=== PATIENT | male | born 1965 | race Caucasian/White ===

== ENCOUNTER 2020-03-12 16:13 | Emergency (ER) | payer SELFPAY ==
[2020-03-12 16:18] VITALS: BP 173/105; PULSE 67; RESP 18; TEMP 36.7; O2SAT 93; BMI 28.8
--- NOTE | 2020-03-12 16:26 | XR_ITS ---
WS: [id number] PORTABLE CHEST HISTORY: sob COMPARISON: 07/18/2011 Hyperinflated lungs. No pneumonia. Subsegmental atelectasis at the RIGHT lung base. No pleural effusion or pneumothorax. Cardiac size: Normal. Mediastinum/Aorta: Normal mediastinum. Healed fracture mid RIGHT clavicle. XR/XR chest 1V portable [id number] IMPRESSION: Chronic emphysema with subsegmental RIGHT basilar atelectasis.
--- NOTE | 2020-03-12 16:27 | W.ED.ABDPA2 ---
HPI - Abdominal Pain General: Chief Complaint: Abdominal Pain Stated Complaint: abd pain Time Seen by Provider: 03/12/20 16:19 Source: patient Mode of arrival: ambulatory Limitations: no limitations History of Present Illness: HPI narrative: 55-year-old male states he had abdominal pain for last 9 days. He states the pain is been roughly 7-8 out of 10 and is sharp in nature. He denies any worsening or improving factors. He has a long history of emphysema and states he had slight wheezing as well. He denies any increase in shortness of breath. Denies any fever or cough. MD elicited complaint: abdominal pain Pertinent past history: none Onset (ago): day(s) Pain Consistency: constant Location: RLQ Severity: moderate Quality: sharp Radiation: none Exacerbating factors: nothing Relieving factors: nothing Associated Symptoms: Denies chills, dysuria and fever(s) Review of Systems Const: Denies: fever, chills, body aches or change in appetite Eyes: Denies: blurry vision or eye discomfort ENMT: Denies: throat pain or dental pain Card: Denies: chest pain Resp: Reports: wheezing GI: Reports: abdominal pain : Denies: painful urination Musc: Denies: neck pain or back pain Skin/Breast: Denies: rash Neuro: Denies: headache Psych: Denies: depression Yusef/Lymph: Denies: easy bruising All/Imm: Denies: hives PFS ED PFSH: Social History (Updated 03/12/20 @ 15:23 by Margo Penny LPN) Smoking and tobacco status: current every day smoker Physical Exam Const: COMMON NORMALS: no apparent distress, oriented x3 and healthy appearing HENMT: COMMON NORMALS: normocephalic and head/scalp atraumatic HEAD & SCALP: normocephalic and atraumatic Eye: COMMON NORMALS: PERRL and EOMs intact bilaterally PUPIL: Yes PERRL Neck/C-Spine: COMMON NORMALS: full ROM and supple Chest: COMMONS NORMALS: inspection of chest normal and palpation of chest normal Resp: COMMON NORMALS: normal respiratory effort, no retractions and no use of accessory muscles AUSCULTATION: wheezes Cardio: COMMON NORMALS: regular rate, regular rhythm and no murmurs RATE: regular rate RHYTHM: regular rhythm GI: COMMON NORMALS: normal to inspection, nondistended, normoactive bowel sounds, soft to palpation and no masses PALPATION: Yes soft and Yes tender Details: RLQ Extremity: COMMON NORMALS: normal to inspection and full ROM Neuro: COMMON NORMALS: oriented x3, moves all extremities and no focal motor deficits Psych: COMMON NORMALS: mental status grossly normal, thought process normal and cooperative THOUGHT PROCESS: normal thought process Skin: COMMON NORMALS: no rashes or lesions noted and no wounds GENERAL SKIN EXAM: no rashes or lesions noted Course Vital Signs: Vital signs: Vital Signs Temperature 98.1 F 03/12/20 16:18 Pulse Rate 63 03/12/20 17:09 Respiratory Rate 16 03/12/20 17:09 Blood Pressure 173/105 03/12/20 16:18 Pulse Oximetry 95 03/12/20 17:09 MDM - Abdominal Pain MDM Narrative: Medical decision making narrative: Patient presents here with abdominal pain patient's lab work and CT scan here are normal. He did have slight wheezing but does have emphysema and is improved with breathing treatment. Patient's x-ray here is normal. Patient is stable for discharge and is well-appearing. Patient's exam here is benign. He is to follow-up with primary care doctor in 3 to 5 days return if worsening Lab Data: Labs: Lab Results 03/12/20 03/12/20 Range/Units 16:30 16:30 WBC 8.1 (4.0-10.0) 10^3/ uL RBC 5.74 H (4.1-5.3) 10^6/u L Hgb 17.4 H (11.7-16.6) g/dL Hct 51.8 (42.0-52.0) % MCV 90.2 (80-94) fL MCH 30.3 (28.0-34.0) pg MCHC 33.6 (30.0-36.0) g/dL RDW 12.3 (12.1-15.1) % Plt Count 260 (130-400) 10^3/c mm MPV 10.3 (7.4-10.4) fL Neut % (Auto) 53.3 % Lymph % (Auto) 30.4 % Mcdonald % (Auto) 11.5 % Eos % (Auto) 3.5 % Baso % (Auto) 0.9 % Neut # (Auto) 4.3 (1.8-7.7) 10^3/u L Lymph # (Auto) 2.5 (0.8-4.8) 10^3/u L Mcdonald # (Auto) 0.9 (0.2-0.9) 10^3/u L Eos # (Auto) 0.3 (0.0-0.8) 10^3/u L Baso # (Auto) 0.1 (0.0-0.1) 10^3/u L Nucleated RBC % (a uto) 0 % Nucleated RBCs # 0.0 /100WBC Sodium 142 (136-145) mmol/L Potassium 4.4 (3.5-5.1) mmol/L Chloride 105 (98-107) mmol/L Carbon Dioxide 25 (22-29) mmol/L Anion Gap 16.4 (5-19) BUN 17 (6-20) mg/dL Creatinine 0.9 (0.7-1.2) mg/dL GFR Calculation 87.3 L (90-130) mL/min Glucose 105 (65-115) mg/dL Calculated Osmolal ity 291 (285-295) mOsm/k g Calcium 10.3 (8.5-10.5) mg/dL Total Bilirubin 0.5 (0.15-1.2) mg/dL AST 25 (0-40) U/L ALT 29 (0-41) U/L Alkaline Phosphata se 76 (40-130) IU/L Total Protein 7.7 (6.6-8.7) g/dL Albumin 4.5 (3.5-5.2) g/dL Globulin 3.2 (1.3-4.6) g/dL Lipase 24 (13-60) U/L Imaging Data ^: CXR: My impression: no acute abnormality CT Head: Radiologist's impression: [address] [address] [address] Scan Report Signed Patient: Dominik De Leon Unit #: [id number] : 1965 Age/Sex: 55 / M ADM Date: 03/12/20 Loc: ER Room/Bed: Attending Dr: Ordering Provider/Ordering MD: Kervin Fisher MD Date of Service: 03/12/20 Procedure(s): CT abdomen pelvis w con* [id number] Accession Number(s): [id number] Report Number: [id number] PROCEDURE INFORMATION: Exam: CT Abdomen And Pelvis With Contrast Exam date and time: 03/12/2020 4:44 PM Age: 55 years old Clinical indication: Abdominal pain; Localized; Right lower quadrant (rlq); Prior surgery; Surgery type: Hernia; Additional info: Abd pain TECHNIQUE: Imaging protocol: Computed tomography of the abdomen and pelvis with intravenous contrast. Radiation optimization: All CT scans at this facility use at least one of these dose optimization techniques: automated exposure control; mA and/or kV adjustment per patient size (includes targeted exams where dose is matched to clinical indication); or iterative reconstruction. Contrast material: OMNI 300; Contrast volume: 95 ml; Contrast route: IV; COMPARISON: CR Pelvis AP 1 or 2 views* [id number] 05/16/2018 12:56 PM RADIATION DOSE METRICS: Total DLP: 987.16 mGy-cm FINDINGS: Lungs: There are calcified granulomas at the lung bases. Liver: There is a diffuse decrease in hepatic parenchymal density, consistent with mild fatty infiltration. There is no focal abnormality within the liver. Gallbladder and bile ducts: The gallbladder is normal. Pancreas: The pancreas is normal. Spleen: The spleen is normal. Adrenals: The adrenal glands are normal. Kidneys and ureters: The kidneys are normal. There is no evidence of renal or ureteral calcifications. There is no evidence of hydronephrosis. Stomach and bowel: There is no evidence of colitis/diverticulitis. Appendix: A normal appendix is identified. Intraperitoneal space: Unremarkable. No free air. No significant fluid collection. Vasculature: The aorta demonstrates mild atherosclerotic calcification. Lymph nodes: Unremarkable. No enlarged lymph nodes. Bladder: Unremarkable as visualized. Reproductive: The prostate and seminal vesicles are normal. Bones/joints: Unremarkable. No acute fracture. Soft tissues: Unremarkable. CT/CT abdomen pelvis w con* [id number] IMPRESSION: Mild fatty liver. No acute findings. Discharge Plan Discharge Patient Disposition: Home, Self-Care Clinical Impression: Abdominal pain Qualifiers: Abdominal location: right lower quadrant Qualified Code(s): R10.31 - Right lower quadrant pain Condition: Stable Prescriptions: New dicyclomine 20 mg tablet 20 mg PO TID Qty: 20 RF: 0 Discharge Orders: Discharge Order (Routine); Ordered 03/12/20 Ordered By: Kervin Fisher Discharge Diet: Advance as tolerated Discharge Activity: Resume usual activity Patient Instructions: Abdominal Pain (ED) Coding Level of Care Code ED Steamfitter Apprentice for Edeg Fwd Exam Comprehensive
[2020-03-12 16:38] LABS: Basophils # 0.1 10^3/uL (0.0-0.1); Basophils % 0.9 %; Eosinophils # 0.3 10^3/uL (0.0-0.8); Eosinophils % 3.5 %; Hematocrit 51.8 % (42.0-52.0); Hemoglobin 17.4 g/dL (11.7-16.6); Lymphocytes # 2.5 10^3/uL (0.8-4.8); Lymphocytes % 30.4 %; Mean Corpuscular HGB Conc 33.6 g/dL (30.0-36.0); Mean Corpuscular Hemoglobin 30.3 pg (28.0-34.0); Mean Corpuscular Volume 90.2 fL (80-94); Mean Platelet Volume 10.3 fL (7.4-10.4); Monocytes # 0.9 10^3/uL (0.2-0.9); Monocytes % 11.5 %; Neutrophils # 4.3 10^3/uL (1.8-7.7); Neutrophils % 53.3 %; Nucleated Red Blood Cells % 0 %; Platelet Count 260 10^3/cmm (130-400); Red Blood Count 5.74 10^6/uL (4.1-5.3); Red Cell Distribution Width 12.3 % (12.1-15.1); White Blood Count 8.1 10^3/uL (4.0-10.0)
[2020-03-12] MEDS: iohexol 300 mg/mL 100 mL Btl IV (16:51)
[2020-03-12 16:53] LABS: Alanine Aminotransferase 29 U/L (0-41); Albumin Level 4.5 g/dL (3.5-5.2); Alkaline Phosphatase 76 IU/L (40-130); Anion Gap 16.4 (5-19); Aspartate Amino Transferase 25 U/L (0-40); Blood Urea Nitrogen 17 mg/dL (6-20); Calcium 10.3 mg/dL (8.5-10.5); Carbon Dioxide 25 mmol/L (22-29); Chloride 105 mmol/L (98-107); Creatinine Clr Calc Pharmacy 97.8875; Globulin 3.2 g/dL (1.3-4.6); Glomerular Filtration Rate 87.3 mL/min (90-130); Glucose 105 mg/dL (65-115); Lipase 24 U/L (13-60); Osmolality Calculated 291 mOsm/kg (285-295); Potassium 4.4 mmol/L (3.5-5.1); Sodium 142 mmol/L (136-145); Total Bilirubin 0.5 mg/dL (0.15-1.2); Total Protein 7.7 g/dL (6.6-8.7)
[2020-03-12 17:02] VITALS: PULSE 61; RESP 16; O2SAT 95
[2020-03-12] MEDS: ipratropium-albuterol 3 mL Neb INHALATION (17:02)
[2020-03-12 17:09] VITALS: PULSE 63; RESP 16; O2SAT 95
[2020-03-12] MEDS: sodium chloride 0.9% 1,000 ML 999 ML IV (17:18)
[2020-03-12 18:08] VITALS: BP 166/112; PULSE 67; RESP 18; TEMP 36.9; O2SAT 94
== END 2020-03-12 18:07 | disposition home or self-care (01) ==
PROVIDERS: Emergency Provider Emergency Medicine; PCP Nurse Practitioner Family
DX: R10.31 Right lower quadrant pain (principal); F17.210 Nicotine dependence, cigarettes, uncomplicated
CPT/HCPCS: 12345; 36415; 71045; 74177; 80053; 83690; 85025; 94640; 96360; 99283; J7030; Q9967

== ENCOUNTER 2020-04-08 13:38 | Emergency (ER) | payer OTHER, SELFPAY ==
[2020-04-08 13:44] VITALS: BP 188/111; PULSE 89; RESP 14; TEMP 36.6; O2SAT 98; BMI 28.3
--- NOTE | 2020-04-08 13:53 | XR_ITS ---
WS: [id number] PORTABLE CHEST HISTORY: trauma COMPARISON: 03/04/2020 Hyperinflated lungs with areas of atelectasis in the lower lung woods with scarring which are new si nce the prior study. No pneumonia. No pleural effusion or pneumothorax. Cardiac size: Normal. Mediastinum/Aorta: Normal mediastinum. No osseous abnormality seen. XR/XR chest 1V portable [id number] IMPRESSION: Chronic emphysema with new areas of atelectasis at the lung bases.
--- NOTE | 2020-04-08 13:54 | W.ED.EXTPRO ---
HPI - Extremity Problem General: Chief complaint: Extremity Injury, Upper Stated complaint: fell about 15 feet/side pain Time Seen by Provider: 04/08/20 13:49 Source: patient Mode of arrival: ambulatory Limitations: no limitations History of Present Illness: HPI Narrative: 55-year-old male states he had a 10 to 15 foot fall off a ladder onto concrete. He landed on his right side and has right-sided abdominal and chest pain. He states the pain is very sharp in nature and rates it a 8 out of 10. Is worse with deep inspirations and with movement. He denies any head or neck injuries. Patient is able ambulate without any problems. Onset (ago): minute(s) Location: right Severity scale (1-10): 8 Exacerbating factors: range of motion Associated symptoms: Reports chest pain; Deny fever(s) or rash Review of Systems Const: Denies: fever(s), chills, body aches or change in appetite Eyes: Denies: blurry vision or eye discomfort ENMT: Denies: throat pain or dental pain Card: Reports: chest pain Resp: Denies: dyspnea GI: Reports: abdominal pain : Denies: dysuria Musc: Denies: neck pain or back pain Skin/Breast: Denies: rash Neuro: Denies: headache(s) Psych: Denies: depression Yusef/Lymph: Denies: easy bruising All/Imm: Denies: urticaria PFSH ED PFSH: Social History Smoking and tobacco status: current every day smoker Alcohol intake: current Physical Exam Const: COMMON NORMALS: no acute distress, patient oriented x3 and healthy appearing HENMT: COMMON NORMALS: normocephalic and atraumatic HEAD & SCALP: normocephalic and atraumatic Eye: COMMON NORMALS: Equal, round and reactive pupils present and EOMs intact bilaterally PUPIL: Yes Equal, round and reactive pupils present Neck/C-Spine: COMMON NORMALS: full ROM and supple Chest: COMMONS NORMALS: normal inspection of the chest OTHER: point tender along right side of chest Resp: COMMON NORMALS: normal respiratory effort, No retractions, No use of accessory muscles and clear to auscultation bilaterally AUSCULTATION: clear to auscultation bilaterally Cardio: COMMON NORMALS: regular rate, regular rhythm and No murmurs present (Cardio) RATE: regular rate RHYTHM: regular rhythm GI: COMMON NORMALS: Normal to inspection, nondistended, normoactive bowel sounds present, Soft to palpation and no masses PALPATION: Yes Soft to palpation OTHER: RUQ tenderness Extremity: COMMON NORMALS: normal to inspection and full ROM Neuro: COMMON NORMALS: patient oriented x3, moves all extremities and no focal motor deficits Psych: COMMON NORMALS: mental status grossly normal, Normal thought process present and cooperative THOUGHT PROCESS: Normal thought process present Skin: COMMON NORMALS: no rashes or lesions noted and no wounds GENERAL SKIN EXAM: no rashes or lesions noted Course Vital Signs: Vital signs: Vital Signs Temperature 97.8 F 04/08/20 13:44 Pulse Rate 89 04/08/20 13:44 Respiratory Rate 15 04/08/20 14:16 Blood Pressure 188/111 04/08/20 13:44 Pulse Oximetry 98 04/08/20 13:44 MDM - Extremity (Nontraumatic) MDM Narrative: Medical decision making narrative: Patient presents here with rib fractures from a fall. Patient has no pneumothorax or intra-abdominal injuries. Patient had no head or neck injuries. Will place on incentive spirometry along with pain meds. Patient is stable for discharge and is to return if worsening. Lab Data: Labs: Lab Results 04/08/20 04/08/20 Range/Units 13:57 13:57 WBC 10.0 (4.0-10.0) 10^3/ uL RBC 5.75 H (4.1-5.3) 10^6/u L Hgb 17.4 H (11.7-16.6) g/dL Hct 51.5 (42.0-52.0) % MCV 89.6 (80-94) fL MCH 30.3 (28.0-34.0) pg MCHC 33.8 (30.0-36.0) g/dL RDW 12.1 (12.1-15.1) % Plt Count 256 (130-400) 10^3/c mm MPV 10.0 (7.4-10.4) fL Neut % (Auto) 69.1 % Lymph % (Auto) 17.9 % Coffee % (Auto) 11.2 % Eos % (Auto) 0.8 % Baso % (Auto) 0.5 % Neut # (Auto) 6.9 (1.8-7.7) 10^3/u L Lymph # (Auto) 1.8 (0.8-4.8) 10^3/u L Coffee # (Auto) 1.1 H (0.2-0.9) 10^3/u L Eos # (Auto) 0.1 (0.0-0.8) 10^3/u L Baso # (Auto) 0.1 (0.0-0.1) 10^3/u L Nucleated RBC % (a uto) 0 % Nucleated RBCs # 0.0 /100WBC Sodium 137 (136-145) mmol/L Potassium 4.2 (3.5-5.1) mmol/L Chloride 101 (98-107) mmol/L Carbon Dioxide 23 (22-29) mmol/L Anion Gap 17.2 (5-19) BUN 16 (6-20) mg/dL Creatinine 0.9 (0.7-1.2) mg/dL GFR Calculation 87.3 L (90-130) mL/min Glucose 102 (65-115) mg/dL Calculated Osmolal ity 281 L (285-295) mOsm/k g Calcium 9.4 (8.5-10.5) mg/dL Imaging Data^: CT Chest: Attestation: I personally reviewed and interpreted this imaging study as follows: Radiologist's impression: [address] [address] [address] Scan Report Signed Patient: Dominik De Leon Unit #: [id number] : 1965 Age/Sex: 55 / M ADM Date: 04/08/20 Loc: ER Room/Bed: Attending Dr: Ordering Provider/Ordering MD: Kervin Fisher MD Date of Service: 04/08/20 Procedure(s): CT chest abd pel w con* Accession Number(s): [id number] Report Number: [id number] PROCEDURE INFORMATION: Exam: CT Chest With Contrast Exam date and time: 04/08/2020 2:05 PM Age: 55 years old Clinical indication: Injury or trauma; Fall; Initial encounter; Rlq; Blunt trauma (contusions or hematomas); Injury details: Pain under RT breast and RT side pain and lt flank pain TECHNIQUE: Imaging protocol: Computed tomography of the chest with intravenous contrast. Axial, coronal and sagittal reformatted images were created and reviewed. Radiation optimization: All CT scans at this facility use at least one of these dose optimization techniques: automated exposure control; mA and/or kV adjustment per patient size (includes targeted exams where dose is matched to clinical indication); or iterative reconstruction. Contrast material: OMNI 300; Contrast volume: 95 ml; Contrast route: LT AC; COMPARISON: CT abdomen pelvis w con* [id number] 03/12/2020 4:48 PM RADIATION DOSE METRICS: Total DLP: 1554.79 mGy-cm FINDINGS: Lungs: Minimal biapical paraseptal emphysematous change. Linear/discoid stranding, groundglass and subsegmental consolidation at the lung bases, likely due to atelectasis and/or scarring. Right lower lobe calcified granuloma. Pleural space: Unremarkable. No pneumothorax. No pleural effusion. Heart: Unremarkable. No cardiomegaly. No pericardial effusion. Mediastinum: Small hiatal hernia. Aorta: Unremarkable. No aneurysm or dissection. Lymph nodes: No pathologically enlarged lymph nodes. Bones/joints: Subtle, age-indeterminate deformity of the right anterior 4th and 5th ribs. Nondisplaced fractures of the right anterolateral 6th and 7th ribs. Minimally displaced fracture of the right anterolateral 8th rib. Osteopenia. Degenerative changes. Old left posterior rib fractures. Soft tissues: Unremarkable. IMPRESSION: 1. Acute right-sided rib fractures, as described above. No pneumothorax. 2. Additional findings, as above. PROCEDURE INFORMATION: Exam: CT Abdomen And Pelvis With Contrast Exam date and time: 04/08/2020 2:05 PM Age: 55 years old Clinical indication: Injury or trauma; Fall; Initial encounter; Rlq; Blunt trauma (contusions or hematomas); Injury details: Pain under RT breast and RT side pain and lt flank pain TECHNIQUE: Imaging protocol: Computed tomography of the abdomen and pelvis with intravenous contrast. Axial, coronal and sagittal reformatted images were created and reviewed. Radiation optimization: All CT scans at this facility use at least one of these dose optimization techniques: automated exposure control; mA and/or kV adjustment per patient size (includes targeted exams where dose is matched to clinical indication); or iterative reconstruction. Contrast material: OMNI 300; Contrast volume: 95 ml; Contrast route: LT AC; COMPARISON: CT abdomen pelvis w con* [id number] 03/12/2020 4:48 PM RADIATION DOSE METRICS: Total DLP: 1554.79 mGy-cm FINDINGS: Liver: Mild hepatomegaly. Gallbladder and bile ducts: No radiodense gallstones. No biliary ductal dilatation. Pancreas: Unremarkable. Spleen: Unremarkable. Adrenals: Unremarkable. Kidneys and ureters: No mass. No radiodense calculi. No hydronephrosis. Stomach and bowel: No bowel wall thickening. No obstruction. No pneumatosis. Appendix: Normal. Intraperitoneal space: No free fluid. No organized fluid collection. No free air. Vasculature: Mild atherosclerotic disease. No aneurysm or dissection. Evidence of chronic portal vein thrombosis and cavernous transformation. Lymph nodes: No pathologically enlarged lymph nodes. Bladder: Unremarkable. Reproductive: Unremarkable. Bones/joints: No acute osseous abnormality. Osteopenia. Degenerative changes. Soft tissues: Unremarkable. CT/CT chest abd pel w con* IMPRESSION: 1. No CT evidence of acute intra-abdominal or pelvic traumatic injury. 2. Additional findings, as above. Discharge Plan Discharge Patient Disposition: Home, Self-Care Clinical Impression: Fracture, ribs Qualifiers: Encounter type: initial encounter Rib fracture type: multiple ribs Fracture type: closed Laterality: right Qualified Code(s): S22.41XA - Multiple fractures of ribs, right side, initial encounter for closed fracture Fall Qualifiers: Encounter type: initial encounter Qualified Code(s): W19.XXXA - Unspecified fall, initial encounter Condition: Stable Prescriptions: New Thayer 5-325 mg tablet 1 tab PO Q6H PRN (Reason: pain) Qty: 14 RF: 0 No Action ibuprofen 200 mg Tablet 400 mg PO PRN RF: 0 Discharge Orders: Discharge Order (Routine); Ordered 04/08/20 Ordered By: Kervin Fisher Referrals: Ashley Preciado FNP [Primary Care Provider] - 1-3 days Discharge Diet: Advance as tolerated Discharge Activity: Resume usual activity Patient Instructions: Rib Fracture (ED) Coding Level of Care Code ED Medical Technologist for g Fwd Exam Comprehensive
[2020-04-08 14:04] LABS: Basophils # 0.1 10^3/uL (0.0-0.1); Basophils % 0.5 %; Eosinophils # 0.1 10^3/uL (0.0-0.8); Eosinophils % 0.8 %; Hematocrit 51.5 % (42.0-52.0); Hemoglobin 17.4 g/dL (11.7-16.6); Lymphocytes # 1.8 10^3/uL (0.8-4.8); Lymphocytes % 17.9 %; Mean Corpuscular HGB Conc 33.8 g/dL (30.0-36.0); Mean Corpuscular Hemoglobin 30.3 pg (28.0-34.0); Mean Corpuscular Volume 89.6 fL (80-94); Monocytes # 1.1 10^3/uL (0.2-0.9); Monocytes % 11.2 %; Neutrophils # 6.9 10^3/uL (1.8-7.7); Neutrophils % 69.1 %; Nucleated Red Blood Cells % 0 %; Platelet Count 256 10^3/cmm (130-400); Red Blood Count 5.75 10^6/uL (4.1-5.3); Red Cell Distribution Width 12.1 % (12.1-15.1)
[2020-04-08 14:16] VITALS: RESP 15
[2020-04-08] MEDS: morphine 4 mg/mL SDV 1 mL IVP (14:16)
[2020-04-08] MEDS: ondansetron 2 mg/ML SDV 2 mL 4 MG IVP (14:16)
[2020-04-08] MEDS: iohexol 300 mg/mL 100 mL Btl IV (14:22)
--- NOTE | 2020-04-08 14:25 | PC.NURSE ---
Read and agree with assessment
[2020-04-08 14:36] LABS: Anion Gap 17.2 (5-19); Blood Urea Nitrogen 16 mg/dL (6-20); Calcium 9.4 mg/dL (8.5-10.5); Carbon Dioxide 23 mmol/L (22-29); Chloride 101 mmol/L (98-107); Glomerular Filtration Rate 87.3 mL/min (90-130); Glucose 102 mg/dL (65-115); Osmolality Calculated 281 mOsm/kg (285-295); Potassium 4.2 mmol/L (3.5-5.1); Sodium 137 mmol/L (136-145)
[2020-04-08 15:16] VITALS: BP 136/90; PULSE 75; RESP 16; O2SAT 97
== END 2020-04-08 15:16 | disposition home or self-care (01) ==
PROVIDERS: Emergency Provider Emergency Medicine; PCP Nurse Practitioner Family
DX: S22.41XA Multiple fractures of ribs, right side, initial encounter for closed fracture (principal); W11.XXXA Fall on and from ladder, initial encounter; F17.210 Nicotine dependence, cigarettes, uncomplicated
CPT/HCPCS: 12345; 71045; 71260; 74177; 80048; 85025; 96374; 96375; 99281; 99283; J2270; J2405; Q9967

== ENCOUNTER 2020-05-21 23:08 | Observation (INO) | payer SELFPAY ==
[2020-05-21 23:12] VITALS: BP 150/99; PULSE 94; RESP 17; TEMP 37; O2SAT 96; BMI 28.0
--- NOTE | 2020-05-21 23:23 | US_ITS ---
WS: [id number] TESTICULAR ULTRASOUND HISTORY: Injury COMPARISON: 04/26/2007 TECHNIQUE: Real-time and color Doppler imaging or utilized to perform a testicular ultrasound. Right testicle: 4.7 cm x 3.7 cm x 3.4 cm. Normal size and echogenicity. No mass or torsion. Normal color Doppler is present throughout. Systolic and diastolic velocities are both present. No significant hydrocele. Right epididymis: Normal epididymis with no increased vascularity. Left testicle: 5.2 cm x 3.1 cm x 2.6 cm. Normal size and echogenicity. No mass or torsion. Normal color Doppler is present throughout. Systolic and diastolic velocities are both present. No significant hydrocele. Left epididymis: Normal epididymis with no increased vascularity. Large amount complex fluid surrounding the penile shaft. Complex fluid with no increased vascularity. Suspect hematoma, greatest along the ventral surface. At the base of the penis the corpus cavernosa are discrete within the penile shaft. The corpus spongiosum is enlarged and heterogeneous and not see n as a discrete structure. US/US scrotum [id number] IMPRESSION: 1. Large heterogeneous mass along the penile sheath, greatest along the ventra l surface, likely hematoma. A small portion of the corpus cavernosa at the base of the penis are normal. Corpus spongiosum is abnormal suggesting injury and m ay be the source of the hematoma. 2. No testicular torsion.
[2020-05-21 23:35] VITALS: RESP 16
[2020-05-21] MEDS: morphine 4 mg/mL SDV 1 mL IVP (23:35)
[2020-05-21] MEDS: ondansetron 2 mg/ML SDV 2 mL 4 MG IVP (23:35)
[2020-05-21 23:36] LABS: Basophils # 0.1 10^3/uL (0.0-0.1); Basophils % 0.6 %; Eosinophils # 0.3 10^3/uL (0.0-0.8); Hematocrit 48.2 % (42.0-52.0); Hemoglobin 16.1 g/dL (11.7-16.6); Lymphocytes # 2.5 10^3/uL (0.8-4.8); Lymphocytes % 29.2 %; Mean Corpuscular HGB Conc 33.4 g/dL (30.0-36.0); Mean Corpuscular Hemoglobin 30.5 pg (28.0-34.0); Mean Corpuscular Volume 91.3 fL (80-94); Mean Platelet Volume 9.4 fL (7.4-10.4); Monocytes # 0.9 10^3/uL (0.2-0.9); Monocytes % 10.4 %; Neutrophils # 4.8 10^3/uL (1.8-7.7); Neutrophils % 56.4 %; Nucleated Red Blood Cells % 0 %; Platelet Count 249 10^3/cmm (130-400); Red Blood Count 5.28 10^6/uL (4.1-5.3); White Blood Count 8.4 10^3/uL (4.0-10.0)
--- NOTE | 2020-05-21 23:44 | W.ED.MALEGU ---
HPI - Male Genitourinary General: Chief complaint: Urogenital-Male Stated complaint: Genital Accident Time Seen by Provider: 05/21/20 23:19 Source: patient and family Mode of arrival: ambulatory Limitations: no limitations History of Present Illness: HPI Narrative: Dominik is a nice 55-year-old male who comes in complaining of penile pain after being hit in the penis by a board earlier today. His injury occurred about 7 to 8 hours ago when he was at work and a board flew back and hit him in the penis. The patient initially tried to endure the pain but as it got worse he had to go home secondary to the discomfort. He states he is able to urinate but has a burning pain when he does so. He denies any injuries to his testicles or to other parts of his abdomen. Associated symptoms: Deny nausea or vomiting Review of Systems Const: Denies: fever(s), chills, body aches, fatigue, malaise or diaphoresis Eyes: Denies: change in vision, blurry vision, blind spots, photophobia, eye discharge or eye redness ENMT: Denies: throat pain, odynophagia, hoarseness, swelling of lips/tongue, oral sores, ear or mastoid pain, ear discharge, change in hearing or nasal discharge Card: Denies: chest pain, palpitations, irregular heart rhythm, edema, lightheadedness, syncope, pre-syncope, dyspnea on exertion or orthopnea Resp: Denies: dyspnea, productive cough, non-productive cough, wheezing, hemoptysis or chest congestion GI: Denies: abdominal pain, nausea, vomiting, hematemesis, coffee ground emesis, heartburn, diarrhea, constipation, GI cramping, hematochezia or melena : Denies: flank pain, urinary frequency or urinary urgency Musc: Denies: neck pain, back pain, extremity pain, extremity swelling, joint pain, joint swelling, joint redness, joint warmth or joint stiffness Skin/Breast: Denies: rash, pruritus, erythema, skin tenderness or jaundice Neuro: Denies: headache(s), numbness in extremities, weakness in extremities, sensory changes, lack of coordination, difficulty walking, dizziness, vertigo, confusion, Slurred speech present or seizure-like activity Yusef/Lymph: Denies: easy bruising, easy bleeding, petechiae, purpura or enlarged lymph nodes All/Imm: Denies: urticaria, throat swelling, tongue swelling, facial swelling or acute wheezing PFSH ED PFSH: Medical History (Updated 05/22/20 @ 03:14 by Daisy Evans) Hypertension Surgical History (Updated 05/22/20 @ 02:48 by Michael Quispe MD) H/O circumcision History of umbilical hernia repair Social History Smoking and tobacco status: current every day smoker Alcohol intake: current Physical Exam Const: COMMON NORMALS: no acute distress, patient oriented x3, no limitations, healthy appearing and well nourished GENERAL APPEARANCE: cooperative, well kempt and well developed HENMT: COMMON NORMALS: normocephalic, atraumatic, external ears normal, EAC's normal and Normal external nose present HEAD & SCALP: normal to inspection, normocephalic and atraumatic FACE & SINUS: normal facial exam and face symmetric NOSE: Normal external nose present and Normal nares present EXTERNAL EAR: Yes external ears normal EXTERNAL AUDITORY CANAL: EAC's normal MOUTH: Normal oral and palatal mucosa present, lip normal and tongue normal Eye: COMMON NORMALS: Equal, round and reactive pupils present and conjunctivae normal GENERAL EYE: appearance normal, both eyes and all related structures ALIGNMENT: Yes alignment normal PERIORBITAL: periorbital findings normal EYELID: eyelids normal CONJUNCTIVA: Yes conjunctivae normal SCLERA: sclerae normal PUPIL: Yes Equal, round and reactive pupils present Neck/C-Spine: COMMON NORMALS: full ROM, no lymphadenopathy, supple, no meningeal signs and no JVD GENERAL: Yes normal visual inspection and Yes trachea midline Chest: COMMONS NORMALS: normal inspection of the chest and normal palpation of entire chest wall Resp: COMMON NORMALS: normal respiratory effort, No retractions and No use of accessory muscles EFFORT & INSPECTION: Yes able to speak in complete sentences and Yes symmetric chest movement AUSCULTATION: no crackles, no rales, no rhonchi and no wheezes Cardio: COMMON NORMALS: no JVD, regular rate, regular rhythm, S1 normal heart sound present and S2 normal heart sound present RATE: regular rate RHYTHM: regular rhythm HEART SOUNDS: S1 normal heart sound present, S2 normal heart sound present, no click, no gallops, no murmurs, no rubs and abnormal split S2 GI: COMMON NORMALS: Soft to palpation and No hepatosplenomegaly present PALPATION: Yes Soft to palpation, No Tenderness to palpation present (GI), No Guarding due to palpation present (GI), No Rigid due to palpation, Yes No hepatosplenomegaly present, No Hernia present, No Palpable mass present and No Pulsatile mass present : COMMON NORMALS: Yes no CVA tenderness BLADDER/KIDNEY EXAM: Yes no CVA tenderness PENIS: other (Left lateral portion of penis with hematoma. Swelling/hematoma is not circumferential. Hematoma extends from the base of the penis to the distal three fourths of the penis. Glans is not involved.) MEATUS: meatus normal SCROTUM: Yes testes descended bilaterally, Yes Cremasteric reflex present, No inguinal hernia and No Scrotal tenderness present TESTES: Yes testicular lie normal, No testicular tenderness and No testicular mass Back/Pelvis: COMMON NORMALS: no CVA tenderness, thoracic and lumbar spine normal to inspection, no thoracic nor lumbar tenderness and thoraco-lumbar ROM normal Extremity: COMMON NORMALS: normal to inspection, full ROM, capillary refill normal, no joint enlargement, no clubbing, cyanosis or edema and no calf tenderness Neuro: COMMON NORMALS: patient oriented x3, CN's II-XII intact bilaterally, moves all extremities, no focal motor deficits and no sensory deficits noted MENINGEAL SIGNS: Yes no meningeal signs SPEECH: speech normal Psych: COMMON NORMALS: mental status grossly normal, Normal thought process present, cooperative, normal affect, speech normal and activity/motor behavior normal APPEARANCE: Yes well kempt SPEECH: Yes normal speech THOUGHT PROCESS: Normal thought process present Skin: COMMON NORMALS: no rashes or lesions noted, turgor normal, no jaundice, no petechiae and no mottling GENERAL SKIN EXAM: no rashes or lesions noted and turgor normal Course Vital Signs: Vital signs: Vital Signs Temperature 98.6 F 05/21/20 23:12 Pulse Rate 68 05/22/20 02:50 Respiratory Rate 18 05/22/20 02:50 Blood Pressure 135/53 05/22/20 02:50 Pulse Oximetry 93 05/22/20 02:50 MDM - Male MDM Narrative: Medical decision making narrative: 0159 -patient's hematoma and swelling is much worse than before. He now admits that this was something that happened during sex. I have informed Dr. Quispe and have expressed to him the worsening of the patient's swelling and hematoma and he agrees to come take the patient to the OR for a penile fracture. Lab Data: Labs: Lab Results 05/21/20 05/21/20 05/21/20 Range/Units 23:30 23:30 23:30 WBC 8.4 (4.0-10.0) 10^3/ uL RBC 5.28 (4.1-5.3) 10^6/u L Hgb 16.1 (11.7-16.6) g/dL Hct 48.2 (42.0-52.0) % MCV 91.3 (80-94) fL MCH 30.5 (28.0-34.0) pg MCHC 33.4 (30.0-36.0) g/dL RDW 12.0 L (12.1-15.1) % Plt Count 249 (130-400) 10^3/c mm MPV 9.4 (7.4-10.4) fL Neut % (Auto) 56.4 % Lymph % (Auto) 29.2 % [place] % (Auto) 10.4 % Eos % (Auto) 3.0 % Baso % (Auto) 0.6 % Neut # (Auto) 4.8 (1.8-7.7) 10^3/u L Lymph # (Auto) 2.5 (0.8-4.8) 10^3/u L [place] # (Auto) 0.9 (0.2-0.9) 10^3/u L Eos # (Auto) 0.3 (0.0-0.8) 10^3/u L Baso # (Auto) 0.1 (0.0-0.1) 10^3/u L Nucleated RBC % (a uto) 0 % Nucleated RBCs # 0.0 /100WBC PT 13.10 (10.5-13.3) SECO NDS INR 0.97 (0.8-1.2) APTT 35.2 (23.9-36.7) SECO NDS Sodium 139 (136-145) mmol/L Potassium 3.8 (3.5-5.1) mmol/L Chloride 103 (98-107) mmol/L Carbon Dioxide 23 (22-29) mmol/L Anion Gap 16.8 (5-19) BUN 22 H (6-20) mg/dL Creatinine 0.8 (0.7-1.2) mg/dL GFR Calculation 100.0 (90-130) mL/min Glucose 112 (65-115) mg/dL Calculated Osmolal ity 285 (285-295) mOsm/k g Calcium 10.4 (8.5-10.5) mg/dL Total Bilirubin 0.3 (0.15-1.2) mg/dL AST 25 (0-40) U/L ALT 27 (0-41) U/L Alkaline Phosphata se 84 (40-130) IU/L Total Protein 7.4 (6.6-8.7) g/dL Albumin 4.6 (3.5-5.2) g/dL Globulin 2.8 (1.3-4.6) g/dL Urine Color (Yellow) Urine Appearance (CLEAR) Urine pH (5-7) Ur Specific Gravit y (1.005-1.030) Urine Protein (Negative) Urine Glucose (UA) (Normal) Urine Ketones (Negative) Urine Blood (Negative) Urine Nitrate (Negative) Urine Bilirubin (NEGATIVE) Urine Urobilinogen (Negative) mg/dL Ur Leukocyte Monica ase (Negative) Urine RBC (0-2) /hpf Urine WBC (0-5) /hpf Ur Squamous Epith Cells (0-5) Urine Bacteria (NONE) 05/22/20 Range/Units 00:30 WBC (4.0-10.0) 10^3/ uL RBC (4.1-5.3) 10^6/u L Hgb (11.7-16.6) g/dL Hct (42.0-52.0) % MCV (80-94) fL MCH (28.0-34.0) pg MCHC (30.0-36.0) g/dL RDW (12.1-15.1) % Plt Count (130-400) 10^3/c mm MPV (7.4-10.4) fL Neut % (Auto) % Lymph % (Auto) % [place] % (Auto) % Eos % (Auto) % Baso % (Auto) % Neut # (Auto) (1.8-7.7) 10^3/u L Lymph # (Auto) (0.8-4.8) 10^3/u L [place] # (Auto) (0.2-0.9) 10^3/u L Eos # (Auto) (0.0-0.8) 10^3/u L Baso # (Auto) (0.0-0.1) 10^3/u L Nucleated RBC % (a uto) % Nucleated RBCs # /100WBC PT (10.5-13.3) SECO NDS INR (0.8-1.2) APTT (23.9-36.7) SECO NDS Sodium (136-145) mmol/L Potassium (3.5-5.1) mmol/L Chloride (98-107) mmol/L Carbon Dioxide (22-29) mmol/L Anion Gap (5-19) BUN (6-20) mg/dL Creatinine (0.7-1.2) mg/dL GFR Calculation (90-130) mL/min Glucose (65-115) mg/dL Calculated Osmolal ity (285-295) mOsm/k g Calcium (8.5-10.5) mg/dL Total Bilirubin (0.15-1.2) mg/dL AST (0-40) U/L ALT (0-41) U/L Alkaline Phosphata se (40-130) IU/L Total Protein (6.6-8.7) g/dL Albumin (3.5-5.2) g/dL Globulin (1.3-4.6) g/dL Urine Color Yellow (Yellow) Urine Appearance Cloudy (CLEAR) Urine pH 6.5 (5-7) Ur Specific Gravit y 1.015 (1.005-1.030) Urine Protein Neg (Negative) Urine Glucose (UA) Norm (Normal) Urine Ketones Negative (Negative) Urine Blood Neg (Negative) Urine Nitrate Positive H (Negative) Urine Bilirubin Neg (NEGATIVE) Urine Urobilinogen Norm (Negative) mg/dL Ur Leukocyte Monica ase Negative (Negative) Urine RBC 0-4 H (0-2) /hpf Urine WBC 0-4 H (0-5) /hpf Ur Squamous Epith Cells Rare (0-5) Urine Bacteria 2+ H (NONE) Imaging Data: Pelvis: My impression: No acute fractures or dislocations. US: My impression: Ultrasound scrotum and penis, tech interpretation - Discharge Plan Discharge Patient Disposition: Admitted As Inpatient Clinical Impression: Penile fracture Condition: Stable Interventions: ED Discharge Assessment Last Done: 05/22/20 02:56 ED Charges Last Done: 05/22/20 02:56 Discharge Date/Time: 05/22/20 02:57 Coding Level of Care Code ED Training Administrator for Chg Fwd Exam Comprehensive
[2020-05-21 23:49] VITALS: BP 134/95; PULSE 98; RESP 18; O2SAT 100
[2020-05-21 23:50] LABS: INR 0.97 (0.8-1.2)
[2020-05-21 23:54] LABS: Alanine Aminotransferase 27 U/L (0-41); Albumin Level 4.6 g/dL (3.5-5.2); Alkaline Phosphatase 84 IU/L (40-130); Anion Gap 16.8 (5-19); Aspartate Amino Transferase 25 U/L (0-40); Blood Urea Nitrogen 22 mg/dL (6-20); Calcium 10.4 mg/dL (8.5-10.5); Carbon Dioxide 23 mmol/L (22-29); Chloride 103 mmol/L (98-107); Globulin 2.8 g/dL (1.3-4.6); Glucose 112 mg/dL (65-115); Osmolality Calculated 285 mOsm/kg (285-295); Potassium 3.8 mmol/L (3.5-5.1); Sodium 139 mmol/L (136-145); Total Bilirubin 0.3 mg/dL (0.15-1.2); Total Protein 7.4 g/dL (6.6-8.7)
[2020-05-22] VITALS (10 sets, daily range): BP systolic 114–141; BP diastolic 53–90; PULSE 66–88; RESP 16–26; TEMP 36.7–37; O2SAT 91–100
--- NOTE | 2020-05-22 00:03 | XRR_ITS ---
PROCEDURE INFORMATION: Exam: XR Pelvis Exam date and time: 05/22/2020 12:50 AM Age: 55 years old Clinical indication: Pain and injury or trauma; Injury history: Hit in genitals with a board; Initial encounter; Blunt trauma (contusions or hematomas); Does not apply; Scrotum; Injury date: 05/21/20; Additional info: Injury/pain TECHNIQUE: Imaging protocol: XR pelvis. Views: 1 or 2 view. COMPARISON: CR Pelvis AP 1 or 2 views* [id number] 05/16/2018 12:56 PM FINDINGS: Bones/joints: osseous structures of the pelvis without an acute process. rami are intact. Sacroiliac joints without separation/diastases/fracture. Iliac bones unremarkable/noncontributory Degenerative changes within the hips: Degenerative changes within the visualized portions of the caudal aspect of the lumbar spine. Soft tissues: Unremarkable. XR/XR pelvis 1-2V* [id number] IMPRESSION: No acute process.
[2020-05-22 00:10] LABS: Partial Thromboplastin Time 35.2 SECONDS (23.9-36.7)
[2020-05-22] MEDS: sodium chloride 0.9% 1,000 ML 100 ML IV ×2 (00:52→05:33)
[2020-05-22] MEDS: HYDROmorphone 1 mg/mL INJ 1 mL 0.5 MG IVP (01:02)
[2020-05-22 01:20] LABS: Add Urine Culture? Yes; Bacteria Urine 2+; Bilirubin Urine Neg (NEGATIVE); Blood Urine Neg (Negative); Glucose Urine UA Norm (Normal); Ketones Urine Negative (Negative); Leukocyte Esterase Urine Negative (Negative); Nitrate Urine Positive (Negative); Protein Urine Neg (Negative); RBC Urine 0-4 /hpf (0-2); Specific Gravity, Urine 1.015 (1.005-1.030); Squamous Epithelial Cell Urine RARE (0-5); Urine Appearance Cloudy (CLEAR); Urine Color Yellow (Yellow); Urobilinogen Urine Norm (Negative); WBC Urine 0-4 /hpf (0-5); pH Urine 6.5 (5-7)
--- NOTE | 2020-05-22 02:40 | ANES.PREANE2 ---
Pre-Anesthetic Assessment Pre-Anesthetic Assessment: Height/Weight: Height 1.75 m Weight 86.183 kg Temp Pulse Resp BP Pulse Ox 98.6 F 68 18 135/53 93 05/21/20 23:12 05/22/20 02:50 05/22/20 02:50 05/22/20 02:50 05/22/20 02:50 Preop Diagnosis: Penile fracture Proposed Procedure: Operation Date: 05/22/20 02:35 Proposed Procedures p Penectomy(Not Applicable) - Michael Quispe MD Was Beta Romy taken within 24 hours: N/A Last intake: Intake Last Liquid Date 05/21/20 Last Liquid Time 19:00 Last Solid Date 05/21/20 Last Solid Time 18:00 Social: Social History: Alcohol and Tobacco Exam: Pre-Anes Outpt Exam: alert, oriented x 3, clear to auscultation bilaterally and regular rate & rhythm Airway: Submandibular: WNL Cervical ROM: WNL MP: 1 Dentition: False Pulmonary: Pulmonary: COPD CV/HEM: CV/HEM: HTN : Comments: vasectomy Hepatic: Hepatic: None reported GI: GI: None reported Metabolic: Metabolic: None reported Musc/skel: Musc/skel: None reported Neuropsych: Neuropsych: None reported Anesthetic Plan: ASA status: 2E Anesthesia: Anesthesia Evaluation and General Risk of > 500 ml blood loss (7ml/kg in children): No Meds/Allergies Current Medications: Current Medications Generic Name Dose Route Start Last Admin Trade Name Freq PRN Reason Stop Dose Admin Sodium Chloride 1,000 mls @ 100 m ls/hr 05/21/20 23:30 05/22/20 00:52 Sodium Chloride 0.9% IV 100 mls/hr .Q10H ECHO Administration PFSH Anesthesia PFSH: Medical History (Updated 05/22/20 @ 03:14 by Daisy Evans) Hypertension Surgical History (Updated 05/22/20 @ 02:48 by Michael Quispe MD) H/O circumcision History of umbilical hernia repair Social History Smoking and tobacco status: current every day smoker Alcohol intake: current Data Anesthesia CBC & Chem 7: 05/21/20 23:30 05/21/20 23:30 Other Labs: Laboratory Results - last 48 hr 05/21/20 05/21/20 05/21/20 23:30 23:30 23:30 WBC 8.4 RBC 5.28 Hgb 16.1 Hct 48.2 MCV 91.3 MCH 30.5 MCHC 33.4 RDW 12.0 L Plt Count 249 MPV 9.4 Neut % (Auto) 56.4 Lymph % (Auto) 29.2 [place] % (Auto) 10.4 Eos % (Auto) 3.0 Baso % (Auto) 0.6 Neut # (Auto) 4.8 Lymph # (Auto) 2.5 [place] # (Auto) 0.9 Eos # (Auto) 0.3 Baso # (Auto) 0.1 Nucleated RBC % (auto) 0 Nucleated RBCs # 0.0 PT 13.10 INR 0.97 APTT 35.2 Sodium 139 Potassium 3.8 Chloride 103 Carbon Dioxide 23 Anion Gap 16.8 BUN 22 H Creatinine 0.8 GFR Calculation 100.0 Glucose 112 Calculated Osmolality 285 Calcium 10.4 Total Bilirubin 0.3 AST 25 ALT 27 Alkaline Phosphatase 84 Total Protein 7.4 Albumin 4.6 Globulin 2.8 Urine Color Urine Appearance Urine pH Ur Specific [place] Urine Protein Urine Glucose (UA) Urine Ketones Urine Blood Urine Nitrate Urine Bilirubin Urine Urobilinogen Ur Leukocyte Esterase Urine RBC Urine WBC Ur Squamous Epith Cells Urine Bacteria 05/22/20 00:30 WBC RBC Hgb Hct MCV MCH MCHC RDW Plt Count MPV Neut % (Auto) Lymph % (Auto) [place] % (Auto) Eos % (Auto) Baso % (Auto) Neut # (Auto) Lymph # (Auto) [place] # (Auto) Eos # (Auto) Baso # (Auto) Nucleated RBC % (auto) Nucleated RBCs # PT INR APTT Sodium Potassium Chloride Carbon Dioxide Anion Gap BUN Creatinine GFR Calculation Glucose Calculated Osmolality Calcium Total Bilirubin AST ALT Alkaline Phosphatase Total Protein Albumin Globulin Urine Color Yellow Urine Appearance Cloudy Urine pH 6.5 Ur Specific [place] 1.015 Urine Protein Neg Urine Glucose (UA) Norm Urine Ketones Negative Urine Blood Neg Urine Nitrate Positive H Urine Bilirubin Neg Urine Urobilinogen Norm Ur Leukocyte Esterase Negative Urine RBC 0-4 H Urine WBC 0-4 H Ur Squamous Epith Cells Rare Urine Bacteria 2+ H Cardiac Studies: No Data to Display
--- NOTE | 2020-05-22 02:45 | P.HP_ITS ---
Providers/Chief Complaint Primary Care Provider: JACKELIN Arevalo Chief Complaint: genitle accident Penile fracture History of Present Illness Dominik De Leon is a 55 year old male who I evaluated for the first time tonight at the request of Dr. Gonzalez in the emergency department for penile fracture. No prior genital problems. Tonight during intercourse he had a traumatic event with popping sensation, immediate detumescence swelling and eventual bruising of the penis. He thinks it occurred about 9:51 PM last night. No blood at the urethral meatus. No difficulty voiding. Work-up in the emergency department when he presented include an ultrasound of the genitalia which was not conclusive. The scrotum ultrasound was normal. Based on the clinical status and picture is was deemed to be a penile fracture and is taken to the operating room emergently for repair. Other medical conditions include HYPERTENSION. Takes lisinopril. He works at the [employer]. Strenuous work with no concerning limitations Review of Systems General: Reports: 10 or more systems reviewed and unremarkable except in HPI and below : Reports: other (Penile fracture as above. Denies any significant lower urinary tract symptoms preceding this event.) Medications/Allergies Home Medications Medication Instructions Recorded Confirmed Last Taken Type hydrocodone-acetaminophen [[place]] 1 tab PO Q6H PRN #14 tab 04/08/20 Unknown Rx ibuprofen 400 mg PO PRN 04/08/20 04/08/20 04/08/20 History Allergies Allergy/AdvReac Type Severity Reaction Status Date / Time Penicillins Allergy ALGY-Rash Verified 04/08/20 12:30 PFSH PFSH: Medical History (Updated 05/22/20 @ 02:48 by Michael Quispe MD) Hypertension Surgical History (Updated 05/22/20 @ 02:48 by Michael Quispe MD) H/O circumcision History of umbilical hernia repair Social History Smoking and tobacco status: current every day smoker Alcohol intake: current Vital Signs Vitals Signs: Last Vital Signs Temp 98.6 F 05/21/20 23:12 Pulse 80 05/22/20 02:19 Resp 16 05/22/20 02:19 BP 129/89 05/22/20 02:19 Pulse Ox 94 05/22/20 02:19 Weight: Weight last 48 hrs Weight 190 lb Physical Exam Const: COMMON NORMALS: no acute distress, alert and well nourished GENERAL APPEARANCE: well kempt and well developed ORIENTATION/CONSCIOUSNESS: not confused HENMT: HEAD & SCALP: normocephalic and atraumatic Eye: COMMON NORMALS: conjunctivae normal and no scleral icterus CONJUNCTIVA: Yes conjunctivae normal Neck/C-Spine: COMMON NORMALS: full ROM GENERAL: Yes normal visual inspection Resp: COMMON NORMALS: normal respiratory effort EFFORT & INSPECTION: No labored and No Actively coughing : MALE GROIN/PERINEUM EXAM: No ecchymosis and No hernia PENIS: penis abnormal, circumcised, edematous and other (Bruised and swollen consistent with penile fracture.) MEATUS: meatus normal, no meatla discharge and No Blood at meatus present SCROTUM: Yes testes descended bilaterally, No edematous and No scrotal swelling TESTES: No absent testicle, No testicular tenderness, No testicular mass, Yes epididymides normal and No epididymal tenderness Extremity: COMMON NORMALS: no clubbing, cyanosis or edema OTHER: Normal Gait Neuro: COMMON NORMALS: no focal motor deficits SENSORIUM/ORIENTATION: Yes alert Psych: COMMON NORMALS: mental status grossly normal APPEARANCE: Yes grossly normal and Yes well kempt ATTITUDE: Yes calm and Yes engaged Skin: COMMON NORMALS: no rashes or lesions noted and no jaundice A&P Assessment and plan (1) Hypertension: Status: Acute (2) Penile fracture: To the operating room emergently. Reviewed the procedure in detail. Discussed potential problems with erections including curvature. Depending upon the location of the injury may have some nerve damage. May well be able to discharge after the procedure. 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
--- NOTE | 2020-05-22 02:57 | P.OP_ITS ---
Operative Report Date of procedure: May 22, 2020 Pre-op Diagnosis: Penile fracture Post-op diagnosis: same Procedure Done: Repair of penile fracture Pathology: none sent Surgeon: Brittaney Anesthesia: General Estimated blood loss: Less than 50 cc Urine output: Not measured Complications: None Condition: stable Disposition: PACU Brief History: Mr. De Leon is a 55-year-old white male who during intercourse tonight had a traumatic injury where he missed . Had a popping sensation immediate loss of erection and swelling of the penis. Presented to the emergency department. No evidence of scrotal trauma on ultrasound. Physical exam revealed a swollen ecchymotic penis with no palpable defect but was quite painful. Clinical diagnosis was penile fracture and he was admitted to surgery for repair penile fracture emergently. Procedure: After emergent evaluation examination and obtaining of informed consent he was taken to the operating suite on 05/22/2020 where general anesthesia was administered without difficulty after appropriate timeout was performed, SCDs confirmed to be functioning, preoperative antibiotics administered, beta- maryjane protocol confirmed. Prepped and draped in usual sterile fashion in supine position pain careful attention to avoiding pressure points. Examination under anesthesia confirmed preoperative findings. Forrest catheter was placed. A circumferential incision was made at his previous circumcision incision taken down through the skin subcutaneous tissue down to the tunica albuginea bilaterally. The penis was explored. Injury: The fracture was located on the left lateral slightly posterior aspect of the distal penis. Not involve the urethra. The remainder of the phallus looked normal other than hematoma. Edges were debrided sharply and then closed with interrupted 3-0 Vicryl sutures with knots buried. Wound was copiously irrigated. Superficial fascia was closed over the incision line. Wound was irrigated and hemostasis was confirmed. Skin edges were approximated with 3-0 chromic. Light dressing was applied. Catheter was removed. Tolerated procedure well without complications and was awakened in the operating room and returned to recovery room in stable condition. PLANS: 1. Discharge after recovery 2. Follow-up 1 week.
[2020-05-22] MEDS: levofloxacin-dextrose 5 % 500 MG/100 ML PREMIX 100 MG IV (03:12)
[2020-05-22] MEDS: vancomycin 1,000 MG in sodium chloride 0.9% 250 ML 250 MG IV (03:18)
[2020-05-22] MEDS: neomycin-poly-bacitracin oint 28 gm 1 APPLIC TOPICAL (04:07)
--- NOTE | 2020-05-22 04:34 | SUR.PHASEI ---
0434 PT AWAKE ALERT DOZES OFF AND ON, C/O OF BURNING BUT STATES NO TOO BAD, VSS PT REPORT TO FLOOR
[2020-05-22] MEDS: HYDROcodone-acetaminophen 5-325 mg Tablet 1 TAB PO (05:33)
--- NOTE | 2020-05-22 06:53 | SUR.PHASEI ---
0445 PT TO FLOOR PER CART PT MOVES SELF TO BED WITHOUT ASSIST, DRESSING TO PENIS D/I HANDOFF AT BEDSIDE.SATS ON 3LNC 96% HR 75
--- NOTE | 2020-05-22 15:51 | PC.RESP ---
Smoking Cessation information and a schedule of classes sent to patient.
== END 2020-05-22 08:34 | disposition home or self-care (01) ==
LOC: ER 05-22 00:26 → OR 05-22 02:02 → MEDSURG 05-22 03:40
PROVIDERS: Emergency Medicine; Admitting Provider Urology; PCP Nurse Practitioner Family; Visit Provider Urology
PROC: (CPT 54440; principal; 2020-05-22 02:35)
DX: S39.840A Fracture of corpus cavernosum penis, initial encounter (principal); X58.XXXA Exposure to other specified factors, initial encounter; N48.89 Other specified disorders of penis; I10 Essential (primary) hypertension; F17.210 Nicotine dependence, cigarettes, uncomplicated; J44.9 Chronic obstructive pulmonary disease, unspecified
CPT/HCPCS: 54437; 12345; 36415; 51702; 72170; 76870; 80053; 81001; 85025; 85610; 85730; 87077; 87086; 87186; 96360; 96361; 96374; 96375; 99283; 99285; G0378; J1100; J1170; J1956; J2001; J2250; J2270; J2370; J2405; J2704; J2710; J3010; J3370; J3490; J7030; J7050